=== PATIENT | female | born 1970 | race Caucasian/White ===

== ENCOUNTER 2023-03-15 06:07 | Outpatient (CLI) | payer BC, SELFPAY ==
--- NOTE | 2023-03-15 06:39 | W.ANESCHARGE ---
Anesthesia Charges Start Date/Time Anesthesia Start Date: 03/15/23 Anesthesia Start Time: 07:06 Stop Date/Time Anesthesia Stop Date: 03/15/23 Anesthesia Stop Time: 07:33
--- NOTE | 2023-03-15 07:38 | W.ANESCHARGE ---
Anesthesia Charges Start Date/Time Anesthesia Start Date: 03/15/23 Anesthesia Start Time: 07:06 Stop Date/Time Anesthesia Stop Date: 03/15/23 Anesthesia Stop Time: 07:33
== END 2023-03-15 06:08 | disposition home or self-care (01) ==
LOC: OP CLINIC 06:08
PROVIDERS: PCP Internal Medicine; Visit Provider Internal Medicine
DX: Z86.010 Personal history of colon polyps (principal); K63.5 Polyp of colon; K57.30 Diverticulosis of large intestine without perforation or abscess without bleeding
CPT/HCPCS: 45380; 811; 88305; J2704